=== PATIENT | male | born 1980 | race African-American/Black ===

== ENCOUNTER 2016-07-13 02:50 | Emergency (ER) | payer OTHER ==
[~2016-07-13 02:50] MED LIST: ALBUTEROL17 GM INH; BENADRYL25 M3 PO; CIPRO PO; GUAIFENESIN/CODEINE PO; HYDROCORT-PRAMO30 G1 TP; IBUPROFEN800 MG PO; KEFLEX500 MG PO; LIPITOR; MEDROL DOSEPAK4 MG PO; MULTI VITAMIN1 EACH; NO MEDICATIONS; PREDNISONE50 MG PO; VICODIN 5/500 T1 TAB PO; VITAMIN D400 UNI2; ZITHROMAX PO
== END 2016-07-13 03:15 | disposition home or self-care (01) ==
LOC: SED 02:50
DX: L02.01 Cutaneous abscess of face (principal); F17.200 Nicotine dependence, unspecified, uncomplicated
CPT/HCPCS: 10060; 87070; 87205; 99283